=== PATIENT | male | born 1955 | race Caucasian/White ===

== ENCOUNTER 2022-04-06 14:01 | Emergency (ER) | payer MEDICARE, SELFPAY ==
[2022-04-06 14:15] VITALS: BP 145/73; PULSE 58; RESP 16; TEMP 36.5; O2SAT 99; BMI 25.5
--- NOTE | 2022-04-06 14:43 | DI.RAD.S_ITS ---
PROCEDURE: XR LUMBAR SPINE 2-3V INDICATIONS: exacerbation of lower lumbar pain w/radiation to bilat hips TECHNIQUE: 3 views of the lumbar spine were acquired. COMPARISON: None. FINDINGS: Bones: 5 kzv-[id number] vertebrae are present. There is 5 mm anterolithesis of L5 on S1. Pars defect is present at L5. No vertebral body compression fractures. No suspicious bony lesions. Soft tissues: Overlying bowel gas pattern is normal. No suspicious soft tissue calcifications. IMPRESSION: Grade 1 anterolisthesis of L5 on S1 with pars defect. Dictated by: Francy Craven M.D. on 04/06/2022 at 15:14 Approved by: Francy Craven M.D. on 04/06/2022 at 15:19
--- NOTE | 2022-04-06 14:46 | ED_ITS ---
HPI - Back Pain/Injury <CANDICE Saucedo - Last Filed: 04/06/22 15:46> General Chief Complaint: Back Pain/Injury Stated Complaint: back pain or kidney stones T-3 Time Seen by Provider: 04/06/22 14:31 Source: patient History of Present Illness HPI Narrative: This is a 66-year-old gentleman who presents to the emergency department complaining of 3 days of worsening low back pain with radiation to his bilateral hips. He states that it wraps around his groin and he feels pain in his inguinal region. Denies any numbness or tingling, states that he was physically exerting himself moving heavy equipment a few days ago. States that he has had low back pain like this in the past but states that this is slightly lower than previously. States he feels spasms, denies any numbness or tingling or radiation down his legs. Denies any groin paresthesia, denies any urinary retention or difficulty urinating. Denies any stool changes and ties rectal tone. Patient states that he takes omeprazole and Mirapex for restless leg syndrome and those are his only medications. He has a follow-up appointment with his primary care provider a net fly on 04/10/2021. Patient endorses that he took a muscle relaxer yesterday, bent over in the kitchen to pick something up and had a syncopal event. Denies any injury from this, denies any fever, chills, nausea vomiting, head injury, or physically feeling ill. Denies any recent trauma. States that he is quite active and works on his 5 acre property everyday. Related Data Previous Rx's Medication Instructions Recorded lidocaine 5 % topical patch 1 patch topical DAILY PRN pain #15 04/06/22 (Lidoderm) ea methocarbamol 500 mg tablet 500 mg PO TID PRN spasm #20 tabs 04/06/22 prednisone 20 mg tablet 20 mg PO DAILY #5 tabs 04/06/22 Allergies Allergy/AdvReac Type Severity Reaction Status Date / Time No Known Drug Allergies Allergy Verified 04/06/22 14:21 Review of Systems <CANDICE Saucedo - Last Filed: 04/06/22 15:46> Review of Systems ROS Unobtainable: All systems reviewed & are unremarkable except as noted in HPI and below Patient History <CANDICE Sauceod - Last Filed: 04/06/22 15:46> Social History Smoking Status: Unknown if ever smoked Smoking Status: Unknown if ever smoked alcohol intake frequency: holidays/special occasions only Substance Use Type: does not use Exam <CANDICE Saucedo - Last Filed: 04/06/22 15:46> Narrative Exam Narrative: Reviewed vitals signs and nursing notes. General: cooperative, comfortable, in no acute distress, well groomed, afebrile HEENT: symmetrical facial expressions, moist mucous membranes Cardiovascular: regular rate and rhythm, no peripheral edema, warm extremities Respiratory: normal effort, able to speak in complete sentences, without wheezing, stridor, or abnormal breath sounds. No retractions or tachypnea. GI: abdomen soft, nontender to palpation, nondistended, without masses, rebound tenderness or exquisite tenderness with exam. MSK: moves all extremities, neurovascularly intact, no weakness, normal tone no tenderness over lumbar spine, tenderness over paraspinal musculature near L4-5. Patient complains of radiation to bilateral posterior hips without radiation elsewhere. No sensation deficit to lower extremities bilaterally, equal strength without deficit, dorsiflexion plantar extension intact bilaterally without exacerbation of pain, leg lift bilaterally exacerbates his symptoms of low back pain. Has occasional spasms. Skin: brisk capillary refill, without pallor or erythema Neuro: normal speech and cognition, A&O x3, ambulatory, clear speech Psych: mental status is grossly normal, congruent mood, normal affect, pleasant and cooperative Initial Vital Signs Initial Vital Signs: Vital Signs Temperature 97.7 F 04/06/22 14:15 Pulse Rate 58 L 04/06/22 14:15 Respiratory Rate 16 04/06/22 14:15 Blood Pressure 145/73 H 04/06/22 14:15 Pulse Oximetry 99 04/06/22 14:15 Oxygen Delivery Method 04/06/22 14:15 <Inocente Lester DO - Last Filed: 04/06/22 16:02> Initial Vital Signs Initial Vital Signs: Vital Signs Temperature 97.7 F 04/06/22 14:15 Pulse Rate 58 L 04/06/22 14:15 Respiratory Rate 16 04/06/22 14:15 Blood Pressure 145/73 H 04/06/22 14:15 Pulse Oximetry 99 04/06/22 14:15 Oxygen Delivery Method 04/06/22 14:15 Course <CANDICE Saucedo - Last Filed: 04/06/22 15:46> Orders Ordered: ED Orders 04/06/22 14:43 XR lumbar spine 2-3V Stat 04/06/22 15:40 EKG-12 Lead Stat Discontinued Medications Acetaminophen (Acetaminophen 325 Mg Tablet) 650 mg PO NOW ONE Stop: 04/06/22 14:46 Last Admin: 04/06/22 15:35 Dose: Not Given Documented By: CTS Ketorolac Tromethamine (Ketorolac 30 Mg/Ml Vial) 15 mg IM NOW ONE Stop: 04/06/22 14:44 Last Admin: 04/06/22 15:30 Dose: 15 mg Documented By: CTS Lidocaine (Lidocaine Patch 1 Each Adh..Patch) 1 each TOP NOW ONE Stop: 04/06/22 14:44 Last Admin: 04/06/22 15:31 Dose: 1 each Documented By: CTS Methocarbamol (Methocarbamol 500 Mg Tablet) 500 mg PO NOW ONE Stop: 04/06/22 14:44 Last Admin: 04/06/22 15:30 Dose: 500 mg Documented By: CTS Prednisone (Prednisone 20 Mg Tablet) 20 mg PO NOW ONE Stop: 04/06/22 14:44 Last Admin: 04/06/22 15:30 Dose: 20 mg Documented By: CTS Vital Signs Vital signs: Vital Signs - 8 hr 04/06/22 14:15 04/06/22 15:48 Temperature 97.7 F Pulse Rate 58 L 55 L Respiratory Rate 16 Blood Pressure 145/73 H 128/62 Pulse Oximetry 99 96 Oxygen Delivery Method Room Air Room Air <Inocente Lester DO - Last Filed: 04/06/22 16:02> Orders Ordered: ED Orders 04/06/22 14:43 XR lumbar spine 2-3V Stat 04/06/22 15:40 EKG-12 Lead Stat Discontinued Medications Acetaminophen (Acetaminophen 325 Mg Tablet) 650 mg PO NOW ONE Stop: 04/06/22 14:46 Last Admin: 04/06/22 15:35 Dose: Not Given Documented By: CTS Ketorolac Tromethamine (Ketorolac 30 Mg/Ml Vial) 15 mg IM NOW ONE Stop: 04/06/22 14:44 Last Admin: 04/06/22 15:30 Dose: 15 mg Documented By: CTS Lidocaine (Lidocaine Patch 1 Each Adh..Patch) 1 each TOP NOW ONE Stop: 04/06/22 14:44 Last Admin: 04/06/22 15:31 Dose: 1 each Documented By: CTS Methocarbamol (Methocarbamol 500 Mg Tablet) 500 mg PO NOW ONE Stop: 04/06/22 14:44 Last Admin: 04/06/22 15:30 Dose: 500 mg Documented By: CTS Prednisone (Prednisone 20 Mg Tablet) 20 mg PO NOW ONE Stop: 04/06/22 14:44 Last Admin: 04/06/22 15:30 Dose: 20 mg Documented By: CTS Vital Signs Vital signs: Vital Signs - 8 hr 04/06/22 14:15 04/06/22 15:48 Temperature 97.7 F Pulse Rate 58 L 55 L Respiratory Rate 16 Blood Pressure 145/73 H 128/62 Pulse Oximetry 99 96 Oxygen Delivery Method Room Air Room Air MDM - Back Pain/Injury <Mona Delvalle [facility] - Last Filed: 04/06/22 15:46> Lab Data Labs: Urine Dip Bedside Urine Glucose Negative Bedside Urine Bilirubin - Negative Bedside Urine Ketone - Negative Urine Specific [place] 1.030 Bedside Urine Occult Blood - Negative Bedside Urine pH 6.0 Bedside Urine Protein - Negative Bedside Urine Urobilinogen - Negative Bedside Urine Nitrite - Negative Bedside Urine Leukocytes - Negative Esterase Imaging Data Lumbar XR: Radiologist's Impression: PROCEDURE:? XR LUMBAR SPINE 2-3V ? INDICATIONS:? exacerbation of lower lumbar pain w/radiation to bilat hips ? TECHNIQUE:? 3 views of the lumbar spine were acquired.? ? COMPARISON:? None. ? FINDINGS:? ? Bones:? 5 [id number] vertebrae are present.? There is 5 mm anterolithesis of L5 on S1.? Pars defect is present at L5.? No vertebral body compression fractures.? No suspicious bony lesions.? ? Soft tissues:? Overlying bowel gas pattern is normal.? No suspicious soft tissue calcifications.? ? ? IMPRESSION:? Grade 1 anterolisthesis of L5 on S1 with pars defect. ? ? Dictated by: Francy Craven M.D. on 04/06/2022 at 15:14 ? ? Approved by: Francy Craven M.D. on 04/06/2022 at 15:19 ? ECG Data Interpretation: EKG independently reviewed by myself at [52] reveals sinus bradycardia with a first-degree block at [52] bpm with regular axis and intervals. No STEMI, ST segment changes, arrhythmia, or acute ischemic changes. MDM Narrative Medical decision making narrative: Chief complaint: 3 days of worsening low back pain without weakness Differential diagnosis considered include: acute fracture, renal colic, pyelonephritis, degenerative joint and or disc disease,, cauda equina , AAA, viscus perforation, osteomyelitis or epidural abscess, disc injury/herniation w/radiculopathy, degenerative arthritis, spinal stenosis, trauma, ligamental injury, paraspinal or other muscular strain, chronic pain, osteoarthritis, and critical cord compression. Patient does not have any records here and has not been evaluated for this in the past. He is not had recent trauma, states that he was moving heavy equipment around 4 days ago, had exacerbation of low back pain afterwards. Lumbar spine x-ray shows grade 1 anterolisthesis of L5 on S1 with pars defect. Patient does not have bony tenderness to palpation, paraspinal musculature is tense, he does not have weakness, incontinence or urinary retention, Suspect likely musculoskeletal etiology strain/sprain,/acute exacerbation of chronic low back pain. Patient's straight leg raise test was positive bilaterally. No back pain red flags on history or physical. No history of IV substance use, or bony tenderness to palpation, no trauma, no bony tenderness to palpation, afebrile, no CVAT, no urinary symptoms. No bowel or urinary incontinence or retention, no saddle anesthesia, no new/worsening distal weakness, decreased reflexes or foot drop. Pt is nontoxic appearing. Patient has soft tissue tenderness to palpation. Pt is neurovascularly intact distally, afebrile, without immunosuppression or evidence of infection, peritoneal signs, hypertensive crisis, incontinence, or menengial signs. Will treat with muscle relaxer, lidocaine patches, low-dose prednisone x5 days, ibuprofen and Tylenol, heat and light massage. Patient will follow up with his PCP at his scheduled appointment, will pursue physical therapy as needed and follow-up with her regarding this. He understands to follow up at [facility] if his symptoms do not improve and return to the emergency department he develops fever, chills or weakness. <Inocente Lanker, DO - Last Filed: 04/06/22 16:02> Lab Data Labs: Urine Dip Bedside Urine Glucose Negative Bedside Urine Bilirubin - Negative Bedside Urine Ketone - Negative Urine Specific [place] 1.030 Bedside Urine Occult Blood - Negative Bedside Urine pH 6.0 Bedside Urine Protein - Negative Bedside Urine Urobilinogen - Negative Bedside Urine Nitrite - Negative Bedside Urine Leukocytes - Negative Esterase Discharge Plan Departure Patient Disposition: Home Clinical Impression: Anterolisthesis of lumbosacral spine, Lumbar pars defect Instructions: Spondylolisthesis, Lumbar Radiculopathy Activity Restrictions/Additional Instructions: *You have been diagnosed with anterolisthesis of L5 on S1 which means that the lumbar spine has slept for just slightly on top of S1, this causes pressure on the nerve root sometimes which is why you have pain on both sides. Please use these medications to help get you over the hump. Please take ibuprofen 600 mg every 6 hours with 650 mg of Tylenol. Please use topical modalities of your choice, heat, avoid exertional activities, follow-up with your PCP for a referral to physical therapy and for additional care as needed. Please use muscle relaxers every 8 hours for spasms, stay hydrated, return for worsening symptoms, and please take your medications with a little bit of food and water. I am glad that you came in today, no concerning signs on your x-ray, I hope that you feel better soon. Please follow-up at [facility] if you do not have resolution of your symptoms. *What to do: *Please continue to take your regular medications as directed. [x ] New medication prescriptions sent to your pharmacy: [[facility]] [ ] New medication written as a paper prescription [ ] No new medications given *Please follow up with your primary care provider in 2-3 days, call for an appointment. Let them know you were seen in the Emergency Department and that we asked that you be seen for follow-up. We will electronically transmit a record of today's note if your PCP is in our system *If you do not have a primary care provider please contact [phone] to establish care with one of the [facility] primary care providers. *Return to Emergency Department if you should have any new, worsening, or concerning symptoms, such as [fever greater than 101F, chills, worsening pain, persistent vomiting or other bothersome symptoms]. Prescriptions: New prednisone 20 mg tablet 20 mg PO DAILY Qty: 5 0RF methocarbamol 500 mg tablet 500 mg PO TID PRN (Reason: spasm) Qty: 20 0RF lidocaine [Lidoderm] 5 % adhesive patch,medicated 1 patch topical DAILY PRN (Reason: pain) Qty: 15 0RF Rx Instructions: leave on most painful area for up to 12 hrs Referrals: [facility] [Provider Group] [facility] [Outside] [facility] [Outside] Mesha Rocha ARNP [Primary Care Provider] - Stand Alone Forms: Patient Portal/API <Inocente Lester DO - Last Filed: 04/06/22 16:02> Cosign ED Attending Cosignature Attestation: Dr Lester Co-Sign Statement: I was available for consultation during this patient's emergency department visit. This chart is signed by myself for administrative purposes only. I did not have direct contact with this patient during this visit. They were seen independently by the APC.
[2022-04-06] MEDS: KETOROLAC 30 MG/ML VIAL 15 MG IM (15:30)
[2022-04-06] MEDS: predniSONE 20 MG TABLET PO (15:30)
[2022-04-06] MEDS: methocarbamoL 500 MG TABLET PO (15:30)
[2022-04-06] MEDS: LIDOCAINE PATCH 1 EACH ADH..PATCH TOP (15:31)
[2022-04-06 15:48] VITALS: BP 128/62; PULSE 55; O2SAT 96
== END 2022-04-06 15:58 | disposition home or self-care (01) ==
PROVIDERS: Emergency Provider Nurse Practitioner Critical Care Medicine; PCP Nurse Practitioner Family
DX: M43.17 Spondylolisthesis, lumbosacral region (principal); R07.9 Chest pain, unspecified
CPT/HCPCS: 72100; 81003; 93005; 96372; 99283; J1885

== ENCOUNTER 2022-04-15 09:48 | Emergency (ER) | payer MEDICARE, SELFPAY ==
[2022-04-15] VITALS (7 sets, daily range): BP systolic 119–140; BP diastolic 69–88; PULSE 58–74; RESP 18; TEMP 36.5; O2SAT 95–98; BMI 26.2
--- NOTE | 2022-04-15 13:08 | ED_ITS ---
HPI - Back Pain/Injury General Chief Complaint: Back Pain/Injury Stated Complaint: Lower back pain,difficulty walking Time Seen by Provider: 04/15/22 13:05 Source: patient Mode of arrival: Ambulatory Limitations: no limitations History of Present Illness HPI Narrative: This is a 66-year-old male who takes medication for restless leg and GERD. Patient presents with low back pain that radiates from the just above the sacral area around towards the pubic bone. Patient states pain started about 10 days ago he was seen here he was given a prescription for lidocaine patches, methocarbamol and prednisone he states pain was improved for a couple days but has since worsened. He states he also has a persistent cough he had some subjective fever, nasal congestion and nonproductive cough. States every time he coughs makes his pain worse. He denies shortness of breath or chest pain. No nausea or vomiting. No diarrhea constipation. No bowel or bladder incontinence or retention. He states pain does not radiate down his legs. No numbness, tingling or weakness. No saddle anesthesia. Patient states he had Tylenol at 3:00 a.m. but has not had any pain medication since then. Patient has had a tele visit with his physician med set up for PT but states he just was not able to get a bed for the last 2 days. He denies any prior back surgery or interventions. He is a former smoker, occasional alcohol, occasional THC. He is accompanied by his . Related Data Previous Rx's Medication Instructions Recorded lidocaine 5 % topical patch 1 patch topical DAILY PRN pain #15 04/06/22 (Lidoderm) ea methocarbamol 500 mg tablet 500 mg PO TID PRN spasm #20 tabs 04/06/22 prednisone 20 mg tablet 20 mg PO DAILY #5 tabs 04/06/22 benzonatate 100 mg capsule 200 mg PO TID PRN cough #10 caps 04/15/22 meloxicam 7.5 mg tablet 7.5 mg PO BID PRN pain #14 tabs 04/15/22 tramadol 50 mg tablet 50 mg PO Q6H PRN pain #10 tabs 04/15/22 Allergies Allergy/AdvReac Type Severity Reaction Status Date / Time No Known Drug Allergies Allergy Verified 04/06/22 14:21 Review of Systems Review of Systems ROS Unobtainable: All systems reviewed & are unremarkable except as noted in HPI and below Patient History Social History Smoking Status: Former smoker Smoking Status: Former smoker alcohol intake frequency: holidays/special occasions only Substance Use Type: marijuana Exam Narrative Exam Narrative: GENERAL: Alert and oriented x three, male in mild discharge. Mild nasal congestion. HEENT: Head normocephalic, atraumatic, EOMI, pupils reactive, face symmetric, moist mucous membranes NECK: Supple, full range of motion CARDIOVASCULAR: Regular rate and rhythm without murmurs, rubs or gallops. RESPIRATORY: Breath sounds equal bilaterally, no wheezes rales or rhonchi. No tachypnea. No accessory muscle use. Patient has mild dry cough. ABDOMEN: Soft, nontender. Normoactive bowel sounds all 4 quadrants. No gu arding or rebound, rigidity, no mass : No CVA tenderness BACK: No cervical, thoracic vertebral point tenderness. Patient has mild 5 S1 tenderness. Patient has slightly decreased range of motion. Patient's gait is slow but able to ambulate. Rectal exam is deferred. Muscle strength is 5/5 in lower extremities, DTRs are 2/4 and lower extremities. Dorsalis pedis and tibialis pulses are 2+ and lower extremities. Sensation is intact in the lower extremities. EXTREMITIES: Normal range of motion, no clubbing or edema. Neurovascularly intact NEUROLOGICAL: Cranial nerves II through XII grossly intact. Moving all extremities SKIN: Warm, dry, no petechiae, no rashes or lesions. Initial Vital Signs Initial Vital Signs: Vital Signs Temperature 97.7 F 04/15/22 10:14 Pulse Rate 74 04/15/22 10:14 Respiratory Rate 18 04/15/22 10:14 Blood Pressure 137/80 04/15/22 10:14 Pulse Oximetry 98 04/15/22 10:14 Oxygen Delivery Method 04/15/22 10:14 Course Orders Ordered: ED Orders 04/15/22 14:17 Covid-19 + FLU A/B + RSV - PCR Stat Discontinued Medications Benzonatate (Benzonatate 100 Mg Capsule) 100 mg PO NOW ONE Stop: 04/15/22 14:05 Last Admin: 04/15/22 14:14 Dose: 100 mg Documented By: AT Ketorolac Tromethamine (Ketorolac 30 Mg/Ml Vial) 30 mg IM NOW ONE Stop: 04/15/22 14:05 Last Admin: 04/15/22 14:14 Dose: 30 mg Documented By: AT Vital Signs Vital signs: Vital Signs - 8 hr 04/15/22 12:54 04/15/22 12:55 04/15/22 12:55 Pulse Rate 69 Blood Pressure 140/79 Pulse Oximetry 97 97 Oxygen Delivery Method Room Air 04/15/22 13:00 04/15/22 13:00 04/15/22 13:30 Pulse Rate 62 Blood Pressure 119/69 138/69 Pulse Oximetry 98 Oxygen Delivery Method Room Air 04/15/22 13:30 04/15/22 14:00 04/15/22 14:00 Pulse Rate 58 L 69 Blood Pressure 135/80 Pulse Oximetry 95 95 Oxygen Delivery Method 04/15/22 14:30 04/15/22 14:30 Pulse Rate 65 Blood Pressure 135/88 Pulse Oximetry 95 Oxygen Delivery Method Room Air MDM - Back Pain/Injury Lab Data Labs: Lab Results 04/15/22 Range/Units 14:17 SARS-CoV-2 (PCR) Negative (Negative) Influenza A (RT-PCR) Flu a negative (NEGATIVE) Influenza B (RT-PCR) Flu b negative (NEGATIVE) RSV (PCR) Negative (Negative) Urine Dip Bedside Urine Glucose Negative Bedside Urine Bilirubin - Negative Bedside Urine Ketone - Negative Urine Specific [place] 1.030 Bedside Urine Occult Blood - Negative Bedside Urine pH 6.0 Bedside Urine Protein - Negative Bedside Urine Urobilinogen - Negative Bedside Urine Nitrite - Negative Bedside Urine Leukocytes - Negative Esterase Imaging Data lumbar xray: Radiologist's Impression: Close Lumbar Spine X-Ray (Signed) Francy Craven - 04/06/22 Launch?[place] [id number] XRay Report Signed Patient: Fawad Laguna MR#: [id number] : 1955 Acct:[id number] Age/Sex: 66 / M Date of Service: 04/06/22 Loc: ED Accession Number: [id number] ?? Procedure: XR lumbar spine 2-3V Ordering Provider: Mona Delvalle PROCEDURE:? XR LUMBAR SPINE 2-3V ? INDICATIONS:? exacerbation of lower lumbar pain w/radiation to bilat hips ? TECHNIQUE:? 3 views of the lumbar spine were acquired.? ? COMPARISON:? None. ? FINDINGS:? ? Bones:? 5 [id number]-[id number] vertebrae are present.? There is 5 mm anterolithesis of L5 on S1.? Pars defect is present at L5.? No vertebral body compression fractures.? No suspicious bony lesions.? ? Soft tissues:? Overlying bowel gas pattern is normal.? No suspicious soft tissue calcifications.? ? ? IMPRESSION:? Grade 1 anterolisthesis of L5 on S1 with pars defect. ? ? Dictated by: Francy Craven M.D. on 04/06/2022 at 15:14 ? ? Approved by: Francy Craven M.D. on 04/06/2022 at 15:19?? MDM Narrative Medical decision making narrative: This is a 66-year-old male with acute low back pain he is had chronic issues in the past. Pain is very localized to the L4-S1 region radiates around his hips but does not radiate down his legs. No numbness, tingling weakness loss of bowel or bladder control or retention. No red flags were noted. Patient had lumbar x-ray which showed changes on his last visit here. Patient has been taking Tylenol, was using muscle relaxers, lidocaine patches and methocarbamol without much improvement of his pain and has had a persistent cough from Inocente viral upper respiratory infection. Patient improved with Toradol he is able to stand and ambulate in the department not totally painless but much improved. Discussed trying short course of meloxicam, continuing with Tylenol and short course of narcotic pain medication if needed. And he is already been set up for PT by a tele visit with his primary care team and was given referral for follow up for his back as well. We did discuss red flag symptoms and reasons to return. Discharge Plan Departure Patient Disposition: Home Clinical Impression: Anterolisthesis of lumbosacral spine, Back pain Instructions: DI for Low Back Pain Activity Restrictions/Additional Instructions: Your imaging shows anterolisthesis of L5 on S1, this is the same area that you are tender over. Follow-up with PT as scheduled by you and your provider. Referral to follow-up with back surgeon is included or he can follow up with pain management if symptoms are persisting for potential interventions. You may take meloxicam 1 tablet every 12 hours. You can also take Tylenol up to a 1000 mg every 6 hours with this medication. If in adequate you can take narcotic pain medication, 1-2 tablets every 6 hours as needed. You can take anti cough medication as needed. This medication can make you sleepy do not drive, perform hazardous activities or make any major decisions while taking it. This medication will make you constipated please take a stool softener once to twice daily until stools are soft and regular. Prescription sent to [facility] in [place]. Please return for fevers with increasing back pain, rapidly worsening pain, new numbness, loss of sensation or weakness, loss of bowel or bladder control, persistent vomiting or other new or concerning changes. Prescriptions: New meloxicam 7.5 mg tablet 7.5 mg PO BID PRN (Reason: pain) Qty: 14 0RF tramadol 50 mg tablet 50 mg PO Q6H PRN (Reason: pain) Qty: 10 0RF benzonatate 100 mg capsule 200 mg PO TID PRN (Reason: cough) Qty: 10 0RF No Action prednisone 20 mg tablet 20 mg PO DAILY Qty: 5 0RF methocarbamol 500 mg tablet 500 mg PO TID PRN (Reason: spasm) Qty: 20 0RF lidocaine [Lidoderm] 5 % adhesive patch,medicated 1 patch topical DAILY PRN (Reason: pain) Qty: 15 0RF Rx Instructions: leave on most painful area for up to 12 hrs Referrals: Mesha Rocha ARNP [Primary Care Provider] - Lisa Graves MD [Physician] - Stand Alone Forms: Patient Portal/API
[2022-04-15] MEDS: KETOROLAC 30 MG/ML VIAL IM (14:14)
[2022-04-15] MEDS: BENZONATATE 100 MG CAPSULE PO (14:14)
--- NOTE | 2022-04-15 14:51 | PC.NURSE ---
Reassessed patient for pain at 1445. Pt stated that he was not sure if the Toradol helped or not since he has not attempted to stand yet. Advised patient to try to stand at the side of the bed with my assistance to assess his pain level with activity. Pt was able to independently get out off of the stretcher to stand. He was surprised at the decreased level in his pain and is now walking to the bathroom with the assistance of his . Pt is tolerating activity well.
[2022-04-15 15:13] LABS: COVID-19 CEPHEID 4-PLEX PCR Negative (Negative); Influenza A - CEPHEID Flu A NEGATIVE (NEGATIVE); Influenza B - CEPHEID Flu B NEGATIVE (NEGATIVE); Respiratory Syncytial Virus Negative (Negative)
--- NOTE | 2022-04-15 15:14 | PC.NURSE ---
This RN was present for assessments of pt with [employer] and agree with documentation. Pt was assessed walking to and from bathroom with assistance by , steady gait.
== END 2022-04-15 15:16 | disposition home or self-care (01) ==
PROVIDERS: Emergency Provider Emergency Medicine; PCP Nurse Practitioner Family
DX: M43.17 Spondylolisthesis, lumbosacral region (principal); M54.50 Low back pain, unspecified; Z20.822 Contact with and (suspected) exposure to COVID-19
CPT/HCPCS: 0241U; 81003; 96372; 99283; J1885